=== PATIENT | male | born 1960 | race Hispanic/Latino ===

== ENCOUNTER 2018-09-18 14:44 | Emergency (ER) | payer MEDICARE, MEDICAID ==
[2018-09-18 14:44] VITALS: BMI 33.9
[2018-09-18 15:06] VITALS: RESP 18
[2018-09-18] MEDS ORDERED: Morphine 4 mg/ml ISec IVP STA (15:16)
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
[2018-09-18 17:16] VITALS: TEMP 98
[2018-09-18 17:47] VITALS: BP 123/56; PULSE 85; O2SAT 99
--- NOTE | 2018-09-18 18:11 | RAD ---
Date of service: 09/18/2018 PROCEDURE: Radiographs of the Left Shoulder HISTORY: s/p w/ dislocation COMPARISON: No prior study available for comparison FINDINGS: BONES: Normal. No fracture. 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 SOFT TISSUES: Tiny calcifications seen in the soft tissues adjacent to the superolateral margin of the left humeral head consistent with calcific tendinitis or bursitis. OTHER FINDINGS: None. IMPRESSION: No acute fractures. Mild DJD as described. Findings also consistent with calcific tendinitis.
--- NOTE | 2018-09-18 18:13 | RAD ---
Date of service: 09/18/2018 PROCEDURE: Radiographs of the Left Shoulder HISTORY: concern for dislocation. need Y view COMPARISON: Correlation made with prior radiographs of left shoulder earlier same day. FINDINGS: BONES: .. No evidence of acute displaced fracture nor dislocation. JOINTS: Redemonstrated is mild degenerative osteoarthritis left acromioclavicular and glenohumeral joints. Few small calcifications within the soft tissues adjacent to the SOFT TISSUES: Few tiny calcifications within the soft tissues adjacent to the superolateral margin of the left humeral head consistent with calcific tendinitis or bursitis. OTHER FINDINGS: None. IMPRESSION: No evidence of acute displaced fracture nor dislocation. Mild DJD. Findings consistent with calcific tendinitis or bursitis.
== END 2018-09-18 17:45 | disposition home or self-care (01) ==
LOC: ED 14:44
DX: M25.512 Pain in left shoulder (principal); I10 Essential (primary) hypertension; F32.9 Major depressive disorder, single episode, unspecified
CPT/HCPCS: 29240; 73030; 96374; 96375; 99285; J1885; J2270

== ENCOUNTER 2018-10-07 16:00 | Emergency (ER) | payer MEDICARE, MEDICAID ==
[2018-10-07 16:02] VITALS: BMI 34.5
[2018-10-07] MEDS ORDERED: TDAP Vaccine 0.5 mL Syr IM ONE (17:23)
[2018-10-07 17:43] VITALS: RESP 18; TEMP 98.6
--- NOTE | 2018-10-07 17:56 | ED PDOC ---
Arrival/HPI - General Chief Complaint: Trauma Time Seen by Provider: 10/07/18 16:47 - History of Present Illness Narrative History of Present Illness (Text): 10/07/18 17:54 58 yo M w/ PMH of TBI x2 w/ residual R sided weakness, presents after he tripped and fell at home because he was not using his cane, which he is supposed to use every time he is walking. Reports that he sustained a facial laceration. Reports no headache, facial pain, neck pain, extremity injury, or any other injury or pain. Past Medical History - Infectious Disease Hx of Infectious Diseases: None - Cardiac Hx Cardiac Disorders: Yes Hx Hypertension: Yes - Pulmonary Hx Respiratory Disorders: No - Neurological Hx Neurological Disorder: Yes (traumatic brain injury) Hx Dementia: Yes Hx Seizures: Yes - HEENT Hx HEENT Disorder: No - Renal Hx Renal Disorder: No - Endocrine/Metabolic Hx Endocrine Disorders: No - Hematological/Oncological Hx Blood Disorders: No - Integumentary Hx Dermatological Disorder: No - Musculoskeletal/Rheumatological Hx Musculoskeletal Disorders: Yes Hx Falls: Yes Hx Unsteady Gait: Yes - Gastrointestinal Hx Gastrointestinal Disorders: No - Genitourinary/Gynecological Hx Genitourinary Disorders: No - Psychiatric Hx Psychophysiologic Disorder: Yes Hx Anxiety: Yes Hx Depression: Yes Hx Emotional Abuse: No Hx Physical Abuse: No Hx Substance Use: No Other/Comment: impulsive disorders. agitation -- since [place] injury - Anesthesia Hx Anesthesia: Yes Hx Anesthesia Reactions: No Hx Malignant Hyperthermia: No - Suicidal Assessment Feels Threatened In Home Enviroment: No Family/Social History Family/Social History: No Known Family HX Smoking Status: Never Smoked Hx Alcohol Use: No Hx Substance Use: No Hx Substance Use Treatment: No Allergies/Home Meds Allergies/Adverse Reactions: Allergies No Known Allergies Allergy (Verified 09/18/18 14:51) Home Medications: Home Meds Medication Instructions Recorded Confirmed ARIPiprazole [Abilify] 5 mg PO HS 04/26/14 06/22/17 Armodafinil [Nuvigil] 200 mg PO DAILY 04/26/14 06/22/17 Atorvastatin Calcium [Lipitor] 80 mg PO DAILY 04/26/14 06/22/17 DULoxetine [Cymbalta] 60 mg PO HS 04/26/14 06/22/17 Ascorbic Acid [Vitamin C 500 mg 500 mg PO BID 11/19/15 06/22/17 Tab] Cetirizine HCl [Children's Allergy 10 mg PO DAILY 11/19/15 06/22/17 Relief] Cod Liver Oil 415 mg PO DAILY 11/19/15 06/22/17 Donepezil HCl [Aricept Odt] 5 mg PO HS 11/19/15 06/22/17 Ferrous Sulfate [High Potency Iron] 325 mg PO DAILY 11/19/15 06/22/17 Metoprolol Tartrate [Lopressor] 25 mg PO BID 11/19/15 06/22/17 Montelukast [Singulair] 10 mg PO DAILY 11/19/15 06/22/17 Multivitamin [Multivitamins] 1 tab PO DAILY 11/19/15 06/22/17 OXcarbazepine [Trileptal] 300 mg PO BID 11/19/15 06/22/17 Ergocalciferol [Drisdol 50,000 1 cap PO Q7D 06/22/17 06/22/17 Intl Units Cap] Review of Systems - Review of Systems Constitutional: absent: Fatigue, Fevers ENT: Sinus Congestion. absent: Sore Throat, Rhinorrhea Respiratory: Cough. absent: SOB Cardiovascular: absent: Chest Pain, Palpitations Gastrointestinal: absent: Abdominal Pain, Nausea, Vomiting Musculoskeletal: Arthralgias. absent: Back Pain, Neck Pain Skin: absent: Rash, Pruritis, Skin Lesions Neurological: absent: Headache, Dizziness Physical Exam Vital Signs Temp Pulse Resp BP Pulse Ox 10/07/18 16:00 98.6 F 89 18 106/86 91 L Temperature: Afebrile Blood Pressure: Normal Pulse: Regular Respiratory Rate: Normal Appearance: Positive for: Well-Appearing, Non-Toxic, Comfortable Pain Distress: None Mental Status: Positive for: Alert and Oriented X 3 - Systems Exam Head: Present: Laceration (+3 cm vertical laceration to the center of the eyebrows. ). No: Tenderness, Contusion, Swelling Pupils: Present: PERRL Extroacular Muscles: Present: EOMI Conjunctiva: Present: Normal Mouth: Present: Moist Mucous Membranes Neck: Present: Normal Range of Motion Respiratory/Chest: Present: Clear to Auscultation, Good Air Exchange. No: Respiratory Distress, Accessory Muscle Use Cardiovascular: Present: Regular Rate and Rhythm, Normal S1, S2. No: Murmurs Abdomen: No: Tenderness, Distention, Peritoneal Signs Back: Present: Normal Inspection Upper Extremity: Present: Normal Inspection. No: Cyanosis, Edema Lower Extremity: Present: Normal Inspection. No: Edema Neurological: Present: GCS=15, CN II-XII Intact, Speech Normal Skin: Present: Warm, Dry, Normal Color. No: Rashes Psychiatric: Present: Alert, Oriented x 3, Normal Insight, Normal Concentration Medical Decision Making ED Course and Treatment: 10/07/18 17:57 Plan : - CT head - Tdap IM - Dermabond 10/07/18 19:21 Laceration repair performed by CAITLYN. Patient tolerated the procedure well and went to CT. CT head w/o contrast : Encephalomalacia re-identified within the left greater than right frontal lobes and a high right parietal lobe. Nonspecific white matter changes. Dictated by Dr. Mya Mcneill. CT findings of encephalomalacia is not new and was described in prior head CT. On reevaluation, patient laying in bed comfortably, he is smiling, cheerful and in good spirits. On exam, patient remains awake alert and oriented 3 in no acute distress. CT results d/w the patient and his family. Advised to follow up with primary care physician in 1-2 days without fail. Advised to tylenol prn for pain. Return to the emergency room at any time for any new or worsening symptoms. Patient states he fully agrees with and understands discharge instructions. States that he agrees with the plan and disposition. Verbalized and repeated discharge instructions and plan. I have given the patient opportunity to ask any additional questions. - RAD Interpretation Radiology Orders: 10/07/18 17:26 HEAD W/O CONTRAST [CT] Stat - Medication Orders Current Medication Orders: Discontinued Medications Tetanus/Reduced Diphtheria/Acell Pertussis (Boostrix Vaccine Inj) 0.5 ml IM .ONCE ONE Stop: 10/07/18 17:24 Last Admin: 10/07/18 17:39 Dose: 0.5 ml Procedure: Wound Repair - Time Performed Time Performed: 17:40 - Time Out Time Out: Side verified, Site verified, Patient ID confirmed - Consent Obtained Consent obtained: Verbal - Performed by Performed by: Mid-level Provider - Indications Indication(s):: Laceration - Location Location:: Face Shape:: Linear Dimensions Length cm: 1 Depth:: Epidermis - Debris Debris:: None - Irrigated Irrigated with ml of normal saline: 50 - Complexity Complexity:: Simple (one layer) - Wound repair method Noelle:: Tissue glue - Patient tolerated procedure Patient Tolerated Procedure:: Well - 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 Disposition/Present on Arrival - Present on Arrival Any Indicators Present on Arrival: No History of DVT/PE: No History of Uncontrolled Diabetes: No Urinary Catheter: No History of Decub. Ulcer: No History Surgical Site Infection Following: None - Disposition Have Diagnosis and Disposition been Completed?: Yes Diagnosis: Head injury, Facial laceration Disposition: HOME/ ROUTINE Disposition Time: 19:15 Patient Plan: Discharge Condition: STABLE Discharge Instructions (ExitCare): Laceration Repair With Glue (DC), Closed Head Injury Additional Instructions: Thank you for letting us take care of you today. You were treated for head injury, facial laceration. The emergency medical care you received today was directed at your acute symptoms. Take only tylenol for pain. It may take several days for your symptoms to resolve. Return to the Emergency Department if your symptoms worsen, do not improve, or if you have any other problems. Please contact your doctor in 2 days for re-evaluation and follow up. Bring any paperwork you were given at discharge with you along with any medications you are taking to your follow up visit. Our treatment cannot replace ongoing medical care by a primary care provider (PCP) outside of the emergency department. Thank you for allowing the [facility] team to be part of your care today. If you had a CT scan: A Radiologist will review the ED reading if any change in treatment is needed we will contact you. Referrals: Amy Hill MD [Primary Care Provider] - Follow up with primary Forms: [employer] (Setswana)
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
[2018-10-07 20:11] VITALS: BP 130/70; PULSE 78; O2SAT 98
== END 2018-10-07 20:11 | disposition home or self-care (01) ==
LOC: ED 16:00
DX: S01.81XA Laceration without foreign body of other part of head, initial encounter (principal); W01.0XXA Fall on same level from slipping, tripping and stumbling without subsequent striking against object, initial encounter; Y92.009 Unspecified place in unspecified non-institutional (private) residence as the place of occurrence of the external cause; Z23 Encounter for immunization

== ENCOUNTER 2018-10-14 15:54 | Inpatient (IN) | payer MEDICARE, MEDICAID ==
[2018-10-14 15:55] VITALS: BMI 34.5
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
[2018-10-14 17:11] LABS: BASO # 0.02 K/mm3 (0.0-2.0); BASO % 0.2 % (0.0-3.0); EOS # 0.2 (0.0-0.7); EOS % 1.4 % (1.5-5.0); HEMOGLOBIN 14.1 g/dL (14.0-18.0); LYMPH # 2.5 (1.2-3.4); LYMPH % 21.9 % (22.0-35.0); MEAN CORPUSCULAR HEMOGLOBIN 27.9 pg (25.0-35.0); MEAN CORPUSCULAR HGB CONC 33.7 g/dl (31.0-37.0); MEAN PLATELET VOLUME 8.9 fl (7.0-11.0); MONO # 0.8 (0.1-0.6); MONO % 7.2 % (1.0-6.0); RBC 5.05 10^6/uL (3.5-6.1); RED CELL DISTRIBUTION WIDTH 13.4 % (11.5-14.5); WHITE BLOOD COUNT 11.4 10^3/uL (4.5-11.0)
[2018-10-14 17:18] LABS: ALB/GLOB RATIO 1.4 (1.1-1.8); ALBUMIN 4.8 g/dL (3.0-4.8); ALT/SGPT 35 U/L (7-56); AST/SGOT 39 U/L (17-59); BLOOD UREA NITROGEN 19 mg/dL (7-21); GFR NON-AFRICAN AMERICAN > 60
--- NOTE | 2018-10-14 18:34 | CT ---
Date of service: 10/14/2018 PROCEDURE: CT HEAD WITHOUT CONTRAST. HISTORY: recurrent falls COMPARISON: Noncontrast head CT performed 10/07/18 TECHNIQUE: Axial computed tomography images were obtained through the head/brain without intravenous contrast. Radiation dose: Total exam DLP = 925.63 mGy-cm. This CT exam was performed using one or more of the following dose reduction techniques: Automated exposure control, adjustment of the mA and/or kV according to patient size, and/or use of iterative reconstruction technique. FINDINGS: HEMORRHAGE: No intracranial hemorrhage. BRAIN: No mass effect or edema. [id number]-right frontal encephalomalacia. Focus of encephalomalacia re-identified within the high right parietal lobe and also seen in the left temporal lobe. Scattered periventricular and subcortical white matter hypodensities, which are nonspecific, but often seen with chronic microvascular ischemic disease. Please note that MRI with diffusion imaging is more sensitive in the detection of acute ischemic event. VENTRICLES: No hydrocephalus. CALVARIUM: Unremarkable. PARANASAL SINUSES: Unremarkable as visualized. No significant inflammatory changes. MASTOID AIR CELLS: Unremarkable as visualized. No inflammatory changes. OTHER FINDINGS: Partial opacification of the right external auditory canal, likely cerumen. IMPRESSION: Encephalomalacia involving the left greater than right frontal lobes, left temporal lobe, as well as the high right parietal lobe.
[2018-10-14 18:37] LABS: URINE BILIRUBIN NEGATIVE (NEGATIVE); URINE BLOOD NEGATIVE (NEGATIVE); URINE GLUCOSE (UA) NEGATIVE (NEGATIVE); URINE LEUKOCYTE ESTERASE NEGATIVE Leu/uL (NEGATIVE); URINE PROTEIN NEGATIVE mg/dL (<30 mg/dL); URINE UROBILINOGEN 0.2 E.U./dL (<1 E.U./dL)
[2018-10-14 18:57] LABS: URINE APPEARANCE CLEAR (CLEAR); URINE COLOR YELLOW (YELLOW)
[2018-10-15 07:24] LABS: HEMOGLOBIN 14.1 g/dL (14.0-18.0); MEAN CELL VOLUME 83.8 fl (80.0-105.0); MEAN CORPUSCULAR HEMOGLOBIN 28.1 pg (25.0-35.0); MEAN CORPUSCULAR HGB CONC 33.6 g/dl (31.0-37.0); MEAN PLATELET VOLUME 8.9 fl (7.0-11.0); RBC 5.01 10^6/uL (3.5-6.1); RED CELL DISTRIBUTION WIDTH 13.5 % (11.5-14.5); WHITE BLOOD COUNT 10.4 10^3/uL (4.5-11.0)
[2018-10-15 07:31] LABS: IRON 43 ug/dL (45-180)
[2018-10-15 07:42] LABS: % IRON SATURATION 13 % (20-55); TOTAL IRON BINDING CAPACITY 330 ug/dL (261-462)
[2018-10-15] MEDS ORDERED: Ergocalciferol 50,000 Intl Units Cap PO SCH (10:00)
[2018-10-15] MEDS ORDERED: ARMODAFINIL 200 MG PO SCH (10:00)
[2018-10-15] MEDS: Multivitamin Therapeutic Tab PO SCH (10:07)
--- NOTE | 2018-10-15 10:19 | RAD ---
Date of service: 10/14/2018 PROCEDURE: Radiographs of the Left Shoulder HISTORY: fall COMPARISON: No prior. FINDINGS: BONES: Normal. No fracture. JOINTS: Normal. Glenohumeral and acromioclavicular joints preserved. No osteoarthritis. SOFT TISSUES: Normal. OTHER FINDINGS: None. IMPRESSION: Normal radiographs of the left shoulder.
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
[2018-10-15 14:29] LABS: FOLATE 19.5 ng/mL
--- NOTE | 2018-10-15 17:23 | CON ---
DATE: 10/15/2018 ORTHOPEDIC CONSULT LOCATION: A 58-year-old male in room 572, bed 2. HISTORY OF PRESENT ILLNESS: The patient came into the hospital on 10/14/2018, orthopedically he complained of left shoulder pain. X-ray shows slightly high riding left humerus which could indicate an early rotator cuff tear. He has tenderness in the anterior subacromial region and at the biceps tendon region. Passive range of motions almost full with restriction at full abduction and external rotation, and he has limited active abductions such as to90 degrees. So, his pain is probably from inflammatory bursitis and tendinitis and early rotator cuff tear, so I injected the left shoulder with Depo-Medrol and Marcaine, the dominant shoulder is the right shoulder, but since he has so much pain. I injected him with this medicine to the left shoulder to see how he does and we will follow him tomorrow. FINAL DIAGNOSES: Early rotator cuff tear and tendinitis and bursitis of left shoulder. Treated with Depo-Medrol injection to the left shoulder. Aleksandr Hathaway DO MTDSadi
[2018-10-15] MEDS: Nystatin 100,000 Units/gm Topical Pow(15 gm) TOP SCH (18:27)
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
[2018-10-16] MEDS: Multivitamin Therapeutic Tab PO SCH (10:16)
[2018-10-16] MEDS: Nystatin 100,000 Units/gm Topical Pow(15 gm) TOP SCH (15:26)
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
[2018-10-17] MEDS: Multivitamin Therapeutic Tab PO SCH (09:10)
[2018-10-17] MEDS: Nystatin 100,000 Units/gm Topical Pow(15 gm) TOP SCH (13:14)
[2018-10-17 22:20] VITALS: RESP 20
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
--- NOTE | 2018-10-18 08:47 | CP.PCM.PCO ---
Physician Communication Note - Physician Communication Note Physician Communication Note: psychiatry team signed off
[2018-10-18] MEDS: Multivitamin Therapeutic Tab PO SCH (11:42)
[2018-10-18] MEDS: Nystatin 100,000 Units/gm Topical Pow(15 gm) TOP SCH (14:25)
--- NOTE | 2018-10-18 14:40 | MRI ---
Date of service: 10/18/2018 PROCEDURE: MRI of the left shoulder HISTORY: left shoulder pain, post fall COMPARISON: TECHNIQUE: MRI of the left shoulder was performed in multiple planes using multiple pulse sequences. FINDINGS: There is a full-thickness complete rotator cuff tear with retraction of the cuff. There is associated superior subluxation of the humeral head with narrowing of the humeral to acromial distance. There is a small joint effusion. The glenoid labrum and biceps tendon are intact. Moderate degenerative changes are seen in the acromioclavicular joint IMPRESSION: Full-thickness tear of the rotator cuff with retraction. See comments
[2018-10-18 16:51] VITALS: BP 134/81; PULSE 74; TEMP 98.7; O2SAT 95
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
== END 2018-10-18 17:28 | DRG 558 ==
LOC: ED 15:54 → ERH 19:14 → 5RSO 22:27
PROVIDERS: ADMIT Internal Medicine; ATTEND Internal Medicine
PROC: 3E0U33Z Introduction of Anti-inflammatory into Joints, Percutaneous Approach (ICD-10-PCS; principal; 2018-10-15)
DX: M75.52 Bursitis of left shoulder (principal); M75.100 Unspecified rotator cuff tear or rupture of unspecified shoulder, not specified as traumatic; R29.6 Repeated falls; G93.89 Other specified disorders of brain; F03.90 Unspecified dementia, unspecified severity, without behavioral disturbance, psychotic disturbance, mood disturbance, and anxiety; I10 Essential (primary) hypertension; R56.9 Unspecified convulsions; R26.81 Unsteadiness on feet; E55.9 Vitamin D deficiency, unspecified; E78.5 Hyperlipidemia, unspecified; F41.9 Anxiety disorder, unspecified; E78.1 Pure hyperglyceridemia; F32.9 Major depressive disorder, single episode, unspecified; F63.9 Impulse disorder, unspecified; Z87.820 Personal history of traumatic brain injury; Z91.19 Patient's noncompliance with other medical treatment and regimen; Z79.899 Other long term (current) drug therapy

== ENCOUNTER 2018-10-18 17:28 | Inpatient (IN) | payer OTHER, MEDICAID ==
[2018-10-18 18:14] VITALS: BMI 33.0
[2018-10-18] MEDS ORDERED: Influenza Vaccine 60 mcg/0.5 mL SYR (4YR UP) IM ONE (20:23)
[2018-10-18] MEDS ORDERED: Pneumococcal 23-Valent Vaccine IM ONE (20:23)
[2018-10-19 07:12] LABS: BASO # 0.04 K/mm3 (0.0-2.0); BASO % 0.2 % (0.0-3.0); EOS # 0.2 (0.0-0.7); EOS % 1.3 % (1.5-5.0); HEMOGLOBIN 14.9 g/dL (14.0-18.0); LYMPH # 2.5 (1.2-3.4); LYMPH % 13.6 % (22.0-35.0); MEAN CORPUSCULAR HEMOGLOBIN 27.6 pg (25.0-35.0); MEAN CORPUSCULAR HGB CONC 33.3 g/dl (31.0-37.0); MONO # 1.9 (0.1-0.6); MONO % 10.6 % (1.0-6.0); RBC 5.4 10^6/uL (3.5-6.1); RED CELL DISTRIBUTION WIDTH 13.6 % (11.5-14.5); WHITE BLOOD COUNT 18.3 10^3/uL (4.5-11.0)
[2018-10-19 07:26] LABS: BLOOD UREA NITROGEN 31 mg/dL (7-21); CALCIUM 9.4 mg/dL (8.4-10.5); GFR NON-AFRICAN AMERICAN > 60
[2018-10-19] MEDS: Multivitamin Therapeutic Tab PO SCH (08:18)
[2018-10-19] MEDS: Nystatin 100,000 Units/gm Topical Pow(15 gm) TOP SCH ×2 (11:33→17:52)
[2018-10-20] MEDS: Multivitamin Therapeutic Tab PO SCH (08:13)
[2018-10-20] MEDS: Nystatin 100,000 Units/gm Topical Pow(15 gm) TOP SCH ×2 (10:26→17:47)
--- NOTE | 2018-10-20 11:25 | RAD ---
Date of service: 10/20/2018 PROCEDURE: Radiographs of the Right Shoulder HISTORY: rt shoulder weakness stiffness COMPARISON: No prior. FINDINGS: BONES: Normal. No fracture. JOINTS: Normal. Glenohumeral and acromioclavicular joints preserved. No osteoarthritis. SOFT TISSUES: Normal. OTHER FINDINGS: None. IMPRESSION: Normal radiographs of the right shoulder.
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
--- NOTE | 2018-10-20 18:11 | CON ---
DATE: 10/20/2018 ORTHOPEDIC CONSULT LOCATION: A 58-year-old male who is in Room 317, Bed 1. HISTORY OF PRESENT ILLNESS: The patient was transferred from the regular floor to the U floor on 10/19/2018 for recuperation for shoulder discomfort and other issues. His left shoulder had an MRI done showing a complete rotator cuff tear with early osteoarthritis. He is contemplating whether he wants to have it repaired or not, but the course of one shot I gave him really did not help so the only way he could get some improvement is to do an arthroscopic subacromial decompression and cold planing of the acromion and a rotator cuff repair, open or through the scope. He also has some pain and stiffness of his right shoulder along with weakness and x-rays are in order to do a right shoulder x-ray to see if there is any osteoarthritis and that also could have a rotator cuff tear. If need be we will get an MRI of the right shoulder after the x-ray is done of the right shoulder. We need to help him with gentle physical therapy, no more cortisone injections, and follow him. FINAL DIAGNOSIS: Osteoarthritis of the left shoulder with the rotator cuff tear and a workup underway on the right shoulder stiffness and pain. Aleksandr Hathaway DO
[2018-10-21 07:09] LABS: HEMOGLOBIN 14.2 g/dL (14.0-18.0); MEAN CELL VOLUME 84.3 fl (80.0-105.0); MEAN CORPUSCULAR HEMOGLOBIN 27.6 pg (25.0-35.0); MEAN CORPUSCULAR HGB CONC 32.7 g/dl (31.0-37.0); MEAN PLATELET VOLUME 9.3 fl (7.0-11.0); RBC 5.15 10^6/uL (3.5-6.1); RED CELL DISTRIBUTION WIDTH 13.6 % (11.5-14.5)
[2018-10-21 07:18] LABS: BLOOD UREA NITROGEN 24 mg/dL (7-21); CALCIUM 9.4 mg/dL (8.4-10.5); GFR NON-AFRICAN AMERICAN > 60
[2018-10-21] MEDS: Multivitamin Therapeutic Tab PO SCH (08:12)
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
[2018-10-21] MEDS: Nystatin 100,000 Units/gm Topical Pow(15 gm) TOP SCH ×2 (11:00→17:20)
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
[2018-10-22] MEDS: Multivitamin Therapeutic Tab PO SCH (07:56)
[2018-10-22] MEDS: Nystatin 100,000 Units/gm Topical Pow(15 gm) TOP SCH ×2 (09:34→17:10)
[2018-10-22] MEDS ORDERED: Ergocalciferol 50,000 Intl Units Cap PO SCH (10:00)
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
[2018-10-23] MEDS: Multivitamin Therapeutic Tab PO SCH (08:49)
[2018-10-23] MEDS: Nystatin 100,000 Units/gm Topical Pow(15 gm) TOP SCH ×2 (09:23→18:08)
[2018-10-23] MEDS: Iron Complex Polysacch 150mg Cap PO SCH (09:25)
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
[2018-10-24 05:29] LABS: ARTERIAL BLOOD GAS HCO3 25.7 mmol/L (21-28); ARTERIAL BLOOD GAS HEMOGLOBIN 13.1 g/dL (11.7-17.4); ARTERIAL BLOOD GAS O2 CAPACITY 18.1 mL/dl (16-24); ARTERIAL BLOOD GAS O2 CONTENT 17.8 ML/dl (15-23); ARTERIAL BLOOD GAS O2 SAT 98.2 % (95-98); ARTERIAL BLOOD GAS PCO2 37 mm/Hg (35-45); ARTERIAL BLOOD GAS PH 7.45 (7.35-7.45); ARTERIAL BLOOD GAS TCO2 26.8 mmol.L (22-28)
[2018-10-24] MEDS: Iron Complex Polysacch 150mg Cap PO SCH (09:20)
[2018-10-24] MEDS: Multivitamin Therapeutic Tab PO SCH (09:20)
[2018-10-24] MEDS: Nystatin 100,000 Units/gm Topical Pow(15 gm) TOP SCH ×2 (09:21→18:23)
--- NOTE | 2018-10-24 10:00 | RAD ---
Date of service: 10/24/2018 PROCEDURE: Radiographs of the Left Shoulder HISTORY: lt sh pain COMPARISON: Left shoulder MRI 10/18/2018. FINDINGS: BONES: No definite acute fracture appreciable. No destructive lesion identified. JOINTS: Subluxation of the left humerus cephalad is not excluded. No dislocation. Degenerative changes at the glenohumeral and acromioclavicular joints appear moderate in severity. SOFT TISSUES: Heterotopic calcifications are appreciated cephalad to the glenohumeral joint. OTHER FINDINGS: None. IMPRESSION: No acute fracture identified. No dislocation. Cephalad subluxation of the humerus relative to the glenoid process is not excluded, likely related to full-thickness rotator cuff tear discussed on prior left shoulder MRI 10/18/2018. No destructive bony lesion identified.
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
[2018-10-25] MEDS: Multivitamin Therapeutic Tab PO SCH (07:52)
[2018-10-25] MEDS: Iron Complex Polysacch 150mg Cap PO SCH (09:31)
[2018-10-25] MEDS: Nystatin 100,000 Units/gm Topical Pow(15 gm) TOP SCH ×2 (09:32→17:35)
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
--- NOTE | 2018-10-25 20:18 | PN ---
DATE: 10/25/2018 SUBJECTIVE: Patient is a 58-year-old male. Patient was seen and examined at the bedside on 10/25/2018, looking comfortable, having pain in both shoulders, today went for MRI of the right shoulder and x-ray of the left shoulder. Seen by the Orthopedics, getting physical therapy. Rules Examiner is discussing with the patient. Rules Examiner talked to the sister. No headache. No dizziness. No chest pain. No palpitations. PHYSICAL EXAMINATION: VITAL SIGNS: Blood pressure 103/76, pulse 62, and temperature 98.2. HEENT: Head is normocephalic and atraumatic. Eyes; PERRLA, extraocular muscles intact, conjunctivae clear. Nose patent. Mucous membranes moist. NECK: Supple. No carotid bruit. No JVD. No thyromegaly. CHEST: Bilaterally symmetrical. HEART: S1 and S2 positive. LUNGS: Clear to auscultation. ABDOMEN: Soft. Bowel sounds present. No organomegaly. EXTREMITIES: No edema. No cyanosis. NEUROLOGIC: Patient is awake and alert, follows simple commands. MEDICATIONS: Abilify, Nuvigil, vitamin C, Lipitor, Aricept, Cymbalta, vitamin D, Claritin, Ritalin, metoprolol, Singulair, nystatin powder, and Trileptal. LABORATORY DATA: We do not have his labs today, but I reviewed the old labs. ASSESSMENT AND PLAN: Mr. Matthew Dixon is a 58-year-old male with history of multiple medical problems, multiple falls, came with fall, history of cerebrovascular accident, right-sided weakness, hypertension, traumatic brain injury, seizures, unsteady gait, anxiety, depression, sleep apnea syndrome, and osteoarthritis. MRI of both shoulders. Orthopedic is on the case, getting physical therapy. GI and DVT prophylaxis. Repeat labs. Amy Hill MD [facility]
[2018-10-26 07:33] LABS: HEMOGLOBIN 13.4 g/dL (14.0-18.0); MEAN CELL VOLUME 83.3 fl (80.0-105.0); MEAN CORPUSCULAR HEMOGLOBIN 27.2 pg (25.0-35.0); MEAN CORPUSCULAR HGB CONC 32.7 g/dl (31.0-37.0); MEAN PLATELET VOLUME 9.2 fl (7.0-11.0); RBC 4.92 10^6/uL (3.5-6.1); RED CELL DISTRIBUTION WIDTH 13.5 % (11.5-14.5); WHITE BLOOD COUNT 8.2 10^3/uL (4.5-11.0)
[2018-10-26 08:08] LABS: BLOOD UREA NITROGEN 16 mg/dL (7-21); CALCIUM 9.3 mg/dL (8.4-10.5); GFR NON-AFRICAN AMERICAN > 60
[2018-10-26] MEDS: Iron Complex Polysacch 150mg Cap PO SCH (09:19)
[2018-10-26] MEDS: Nystatin 100,000 Units/gm Topical Pow(15 gm) TOP SCH ×2 (09:20→17:20)
[2018-10-26] MEDS: Multivitamin Therapeutic Tab PO SCH (09:21)
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
[2018-10-26 17:17] VITALS: BP 121/77; PULSE 75; RESP 18; TEMP 97.9; O2SAT 97
== END 2018-10-26 18:56 | DRG 946 ==
LOC: TRCU 17:28
PROVIDERS: ADMIT Internal Medicine; ATTEND Internal Medicine
PROC: F07L6YZ Therapeutic Exercise Treatment of Musculoskeletal System - Lower Back / Lower Extremity using Other Equipment (ICD-10-PCS; principal; 2018-10-20)
PROC: F08Z2ZZ Grooming/Personal Hygiene Treatment (ICD-10-PCS; 2018-10-20)
PROC: F08Z1ZZ Dressing Techniques Treatment (ICD-10-PCS; 2018-10-20)
PROC: F07Z9FZ Gait Training/Functional Ambulation Treatment using Assistive, Adaptive, Supportive or Protective Equipment (ICD-10-PCS; 2018-10-21)
PROC: F07Z5ZZ Bed Mobility Treatment (ICD-10-PCS; 2018-10-21)
PROC: F07Z8ZZ Transfer Training Treatment (ICD-10-PCS; 2018-10-21)
PROC: 5A09357 Assistance with Respiratory Ventilation, Less than 24 Consecutive Hours, Continuous Positive Airway Pressure (ICD-10-PCS; 2018-10-21)
DX: R53.1 Weakness (principal); R26.81 Unsteadiness on feet; M75.122 Complete rotator cuff tear or rupture of left shoulder, not specified as traumatic; M19.012 Primary osteoarthritis, left shoulder; G47.33 Obstructive sleep apnea (adult) (pediatric); F03.90 Unspecified dementia, unspecified severity, without behavioral disturbance, psychotic disturbance, mood disturbance, and anxiety; R29.6 Repeated falls; I10 Essential (primary) hypertension; G40.909 Epilepsy, unspecified, not intractable, without status epilepticus; F41.9 Anxiety disorder, unspecified; F32.9 Major depressive disorder, single episode, unspecified; E55.9 Vitamin D deficiency, unspecified; E78.00 Pure hypercholesterolemia, unspecified; G47.00 Insomnia, unspecified; Z87.820 Personal history of traumatic brain injury

== ENCOUNTER 2018-10-24 08:51 | Outpatient (CLI) | payer MEDICARE, MEDICAID | END 2018-10-24 08:52 | disposition home or self-care (01) | LOC: RAD 08:51 ==

== ENCOUNTER 2018-11-26 21:26 | Emergency (ER) | payer MEDICARE, MEDICAID ==
[2018-11-26 21:56] VITALS: BMI 33.9
[2018-11-26 21:58] VITALS: TEMP 98.1
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
[2018-11-27 01:16] VITALS: O2SAT 95
[2018-11-27 03:01] VITALS: RESP 17
[2018-11-27 03:54] VITALS: BP 114/81; PULSE 74
--- NOTE | 2018-11-27 09:52 | CT ---
Date of service: 11/26/2018 PROCEDURE: CT HEAD WITHOUT CONTRAST. HISTORY: Status post fall COMPARISON: Made with CT scan brain 10/14/2018. TECHNIQUE: Axial computed tomography images were obtained through the head/brain without intravenous contrast. Radiation dose: Total exam DLP = 924.86 mGy-cm. This CT exam was performed using one or more of the following dose reduction techniques: Automated exposure control, adjustment of the mA and/or kV according to patient size, and/or use of iterative reconstruction technique. FINDINGS: HEMORRHAGE: No acute parenchymal, subarachnoid or extra-axial hemorrhage. BRAIN: Moderate to fairly significant left and mild right sided inferior frontal pole encephalo -malacia changes are again seen likely posttraumatic.. Mild encephalomalacia changes left and right anterior inferior temporal lobes also unchanged.. These findings are felt to represent old posttraumatic sequela however clinical correlation with history recommended. There is a smaller localized area of low-attenuation in the right and to a lesser degree left superior frontal subcortical white matter as well that could represent sequela of old trauma or ischemia.. Suspect minimal chronic periventricular white matter ischemic changes. Moderate to fairly significant atrophy involving the supratentorial and infratentorial compartments. VENTRICLES: No obstructive hydrocephalus. CALVARIUM: Calvarium intact. PARANASAL SINUSES: Unremarkable as visualized. No significant inflammatory changes. MASTOID AIR CELLS: Unremarkable as visualized. No inflammatory changes. OTHER FINDINGS: None. IMPRESSION: No acute intracranial hemorrhage. Moderate to fairly significant left and mild right sided inferior frontal pole encephalo -malacia changes are again seen likely posttraumatic.. Mild encephalomalacia changes left and right anterior inferior temporal lobes also unchanged.. These findings are felt to represent old posttraumatic sequela however clinical correlation with history recommended. There is a smaller localized area of low-attenuation in the right and to a lesser degree left superior frontal subcortical white matter as well that could represent sequela of old trauma or ischemia.. Suspect minimal chronic periventricular white matter ischemic changes. Moderate to fairly significant atrophy involving the supratentorial and infratentorial compartments.
--- NOTE | 2018-11-27 12:14 | RAD ---
Date of service: 11/26/2018 PROCEDURE: Left Femur Radiographs. HISTORY: Fall COMPARISON: None. TECHNIQUE: AP and Lateral Radiographs of the left femur. 4 views obtained. FINDINGS: FEMUR: No evidence of acute displaced fracture nor dislocation. Old healed fracture deformity mid shaft left femur present.. The left femoral head is appropriately located within the left acetabulum. SOFT TISSUES: Normal. OTHER FINDINGS: Mild degenerative osteoarthritis left knee. IMPRESSION: No evidence of acute displaced fracture nor dislocation. There is old healed midshaft fracture left femur.
== END 2018-11-27 03:55 | disposition home or self-care (01) ==
LOC: ED 21:26
DX: S01.311A Laceration without foreign body of right ear, initial encounter (principal); S80.12XA Contusion of left lower leg, initial encounter; W01.198A Fall on same level from slipping, tripping and stumbling with subsequent striking against other object, initial encounter; Z91.81 History of falling; Y93.E9 Activity, other interior property and clothing maintenance; Y92.009 Unspecified place in unspecified non-institutional (private) residence as the place of occurrence of the external cause